=== PATIENT | male | born 1980 | race African-American/Black ===

== ENCOUNTER 2017-04-07 12:27 | Inpatient (IN) | payer MEDICARE, MEDICAID ==
[~2017-04-07 12:27] MED LIST: ALBUTEROL0.83 MG/ML; ALPRAZOLAM0.25 MG PO; ARTIFICIAL TEAR15 M OP; ASCORBIC ACID250 M1 PO; ATENOLOL25 MG PO; BACLOFEN20 MG PO; CYMBALTA60 MG PO; D-20002000 UNIT PO; ELAVIL75 MG PO; FLOVENT HFA12 GM; GABAPENTIN300 MG PO; HYDROCODONE/APA1 CAP; IBUPROFEN600 MG; LIBRIUM25 MG PO; METHENAMINE1 GM MC; MUCINEX600 MG PO; PERIDEX480 ML MM; PROVENTIL17 GM; REGLAN10 MG PO; SINGULAIR10 MG PO; SYMBICORT 16010.2 GM IH
[2017-04-07] MEDS ORDERED: XANAX0.25 M1 PO ×2 (12:48)
[2017-04-07] MEDS ORDERED: CYMBALTA60 M1 PO (12:49)
[2017-04-07] MEDS ORDERED: LINZESS290 MC1 PO (12:49)
[2017-04-07] MEDS ORDERED: THERA-M1 EAC1 PO (12:50)
[2017-04-07] MEDS ORDERED: MELATONIN3 M4 PO (12:52)
[2017-04-07] MEDS ORDERED: AMITRIPTYLINE H25 M1 PO (12:52)
[2017-04-07] MEDS ORDERED: NEURONTIN600 M1 PO (12:52)
[2017-04-07] MEDS ORDERED: SINGULAIR10 M1 PO (12:52)
[2017-04-07] MEDS ORDERED: VITAMIN C500 M3 PO (12:53)
[2017-04-07] MEDS ORDERED: ARTIFICIAL TEAR15 M8 OP (12:53)
[2017-04-07] MEDS ORDERED: GUAIFENESIN200 M3 PO (12:54)
[2017-04-07] MEDS ORDERED: ZYPREXA10 M1 PO (12:54)
[2017-04-07] MEDS ORDERED: PERIDEX118 ML SSP (12:55)
[2017-04-07] MEDS ORDERED: QVAR8.7 G1 INH (12:55)
[2017-04-07] MEDS ORDERED: ACIDOPHILUS-PE1 EAC1 PO (12:55)
[2017-04-07] MEDS ORDERED: SENEXON-S TABL1 EAC1 PO (12:56)
[2017-04-07] MEDS ORDERED: SIMETHICONE80 M3 CH (12:56)
[2017-04-07] MEDS ORDERED: BACLOFEN20 M1 PO (12:56)
[2017-04-07] MEDS ORDERED: HIPREX1 GM PO (12:56)
[2017-04-07] MEDS ORDERED: TIZANIDINE HCL2 M2 PO (12:57)
[2017-04-07] MEDS ORDERED: LYRICA100 MG/CAP PO (12:57)
[2017-04-07] MEDS ORDERED: ZOFRAN ODT4 MG PO (12:57)
[2017-04-07] MEDS ORDERED: CITRATE OF MAG300 M1 PO (13:03)
[2017-04-07] MEDS ORDERED: TYLENOL325 M2 PO (13:04)
[2017-04-07] MEDS ORDERED: COLACE100 M1 PO (13:05)
[2017-04-07] MEDS ORDERED: BISCOLAX10 MG PR ×2 (13:05→13:08)
[2017-04-07] MEDS ORDERED: [UNRECOGNIZED DRUG - CODE] TOP (13:06)
[2017-04-07] MEDS ORDERED: MILK OF MAGNESIA PO (13:06)
[2017-04-07] MEDS ORDERED: IPRAT-ALBUT 0.5-3 ML INH ×2 (13:07)
[2017-04-07] MEDS ORDERED: BISACODYL5 M1 PO (13:08)
[2017-04-07] MEDS ORDERED: ULTRAM50 M1 PO (13:09)
[2017-04-07] MEDS ORDERED: AMBIEN10 M1 PO (13:10)
[2017-04-07 13:43] LABS: BASO % 0.2 % (0-2); EOS % 1.8 % (0-7); EOSINOPHIL ABSOLUTE COUNT 0.2 tho/cmm (0.0-0.7); HCT-HEMATOCRIT 42.3 % (36.0-53.5); IMMATURE GRANULOCYTES ABSOLUTE 0.02 tho/cmm (0-0.03); IMMATURE GRANULOCYTES PERCENT 0.2 % (0-0.3); LYMPH % 23.4 % (20-45); LYMPH ABSOLUTE COUNT 2.2 tho/cmm (0.8-4.5); MCHC MEAN CORPUSCULAR HGB CONC 33.1 % (32.0-36.0); MCV (MEAN CELL VOLUME) 87.8 fl (82.0-96.0); MONO % 6.7 % (0-12); MONOCYTE ABSOLUTE COUNT 0.6 tho/cmm (0.0-1.2); NEUTROPHIL ABSOLUTE COUNT 6.3 tho/cmm (1.6-8.0); NEUTROPHIL-AUTOMATED 6.3 tho/cmm (1.6-8.0); NEUTROPHILS % 67.7 % (40-80); PLATELET COUNT 246 tho/cmm (150-450); RED BLOOD COUNT 4.82 mil/cmm (4.40-5.70); RED CELL DISTRIBUTION WIDTH 13.9 % (12.4-16.4); WHITE BLOOD COUNT 9.3 tho/cmm (4.0-10.0)
[2017-04-07] MEDS ORDERED: VITAMIN D-32000 UNI4 PO (13:49)
[2017-04-07 13:57] LABS: ALB/GLOB RATIO 0.8 (0.8-2.0); ALBUMIN 3.5 g/dl (3.5-5.0); ALKALINE PHOSPHATASE 69 U/L (33-138); ALT/SGPT 27 U/L (12-78); ANION GAP 14 mmol/L (0-20); AST/SGOT 17 U/L (10-40); BILIRUBIN,TOTAL 0.3 mg/dl (0.0-1.5); BLOOD UREA NITROGEN 4 mg/dl (6-24); CALCIUM 9.1 mg/dl (8.5-10.5); CARBON DIOXIDE-VENOUS 28 mmol/L (22-32); CHLORIDE 105 mmol/l (96-110); GLUCOSE 96 mg/dL (70-110); LIPASE 120 U/L (73-393); POTASSIUM 3.5 mmol/L (3.7-5.1); SODIUM 143 mmol/L (135-145); eGFR VALUE FOR BLACK >90 mL/Min
[2017-04-08 05:09] LABS: BASO % 0.4 % (0-2); EOS % 3.8 % (0-7); EOSINOPHIL ABSOLUTE COUNT 0.3 tho/cmm (0.0-0.7); HCT-HEMATOCRIT 38.1 % (36.0-53.5); HGB-HEMOGLOBIN 12.3 gm/dl (13.5-17.0); IMMATURE GRANULOCYTES ABSOLUTE 0.01 tho/cmm (0-0.03); IMMATURE GRANULOCYTES PERCENT 0.1 % (0-0.3); LYMPH % 32.3 % (20-45); LYMPH ABSOLUTE COUNT 2.5 tho/cmm (0.8-4.5); MCH (MEAN CORPUSCULAR HGB) 28.5 pg (28.0-32.0); MCHC MEAN CORPUSCULAR HGB CONC 32.3 % (32.0-36.0); MCV (MEAN CELL VOLUME) 88.4 fl (82.0-96.0); MEAN PLATELET VOLUME 10.2 cmc (9.4-12.4); MONO % 7.5 % (0-12); MONOCYTE ABSOLUTE COUNT 0.6 tho/cmm (0.0-1.2); NEUTROPHIL ABSOLUTE COUNT 4.3 tho/cmm (1.6-8.0); NEUTROPHIL-AUTOMATED 4.3 tho/cmm (1.6-8.0); NEUTROPHILS % 55.9 % (40-80); PLATELET COUNT 214 tho/cmm (150-450); RED BLOOD COUNT 4.31 mil/cmm (4.40-5.70); WHITE BLOOD COUNT 7.6 tho/cmm (4.0-10.0)
[2017-04-08 05:18] LABS: ANION GAP 14 mmol/L (0-20); BLOOD UREA NITROGEN 7 mg/dl (6-24); CALCIUM 8.1 mg/dl (8.5-10.5); CARBON DIOXIDE-VENOUS 27 mmol/L (22-32); CHLORIDE 109 mmol/l (96-110); CREATININE 0.62 mg/dl (0.60-1.30); GLUCOSE 78 mg/dL (70-110); MAGNESIUM 2.4 mg/dl (1.8-2.6); POTASSIUM 3.4 mmol/L (3.7-5.1); SODIUM 147 mmol/L (135-145); eGFR VALUE FOR BLACK >90 mL/Min
--- NOTE | 2017-04-08 21:50 | NUR ---
VIRTUAL CARE NOTE: ASSESSMENT DEFERRED. PT. SLEEPING.
[2017-04-09 05:33] LABS: HGB-HEMOGLOBIN 13.6 gm/dl (13.5-17.0); PLATELET COUNT 217 tho/cmm (150-450)
[2017-04-09 05:49] LABS: ANION GAP 20 mmol/L (0-20); BLOOD UREA NITROGEN 5 mg/dl (6-24); CALCIUM 8.7 mg/dl (8.5-10.5); CARBON DIOXIDE-VENOUS 22 mmol/L (22-32); CHLORIDE 110 mmol/l (96-110); POTASSIUM 3.7 mmol/L (3.7-5.1); SODIUM 148 mmol/L (135-145); eGFR VALUE FOR BLACK >90 mL/Min
[2017-04-09 05:56] LABS: GLUCOSE 66 mg/dL (70-110)
[2017-04-10 05:53] LABS: ANION GAP 18 mmol/L (0-20); BLOOD UREA NITROGEN 6 mg/dl (6-24); CALCIUM 8.9 mg/dl (8.5-10.5); CARBON DIOXIDE-VENOUS 18 mmol/L (22-32); CHLORIDE 118 mmol/l (96-110); CREATININE 0.66 mg/dl (0.60-1.30); MAGNESIUM 2.5 mg/dl (1.8-2.6); POTASSIUM 4.1 mmol/L (3.7-5.1); SODIUM 150 mmol/L (135-145); eGFR VALUE FOR BLACK >90 mL/Min
[2017-04-10 05:56] LABS: GLUCOSE 66 mg/dL (70-110)
[2017-04-11 08:56] LABS: BASO % 0.2 % (0-2); EOS % 2.2 % (0-7); EOSINOPHIL ABSOLUTE COUNT 0.2 tho/cmm (0.0-0.7); HCT-HEMATOCRIT 39.6 % (36.0-53.5); IMMATURE GRANULOCYTES ABSOLUTE 0.02 tho/cmm (0-0.03); IMMATURE GRANULOCYTES PERCENT 0.2 % (0-0.3); LYMPH % 15.9 % (20-45); LYMPH ABSOLUTE COUNT 1.7 tho/cmm (0.8-4.5); MCH (MEAN CORPUSCULAR HGB) 28.8 pg (28.0-32.0); MCHC MEAN CORPUSCULAR HGB CONC 32.8 % (32.0-36.0); MCV (MEAN CELL VOLUME) 87.6 fl (82.0-96.0); MONO % 6.9 % (0-12); MONOCYTE ABSOLUTE COUNT 0.7 tho/cmm (0.0-1.2); NEUTROPHIL ABSOLUTE COUNT 7.7 tho/cmm (1.6-8.0); NEUTROPHIL-AUTOMATED 7.7 tho/cmm (1.6-8.0); NEUTROPHILS % 74.6 % (40-80); PLATELET COUNT 211 tho/cmm (150-450); RED BLOOD COUNT 4.52 mil/cmm (4.40-5.70); WHITE BLOOD COUNT 10.4 tho/cmm (4.0-10.0)
[2017-04-11 09:05] LABS: ANION GAP 16 mmol/L (0-20); BLOOD UREA NITROGEN 5 mg/dl (6-24); CALCIUM 8.8 mg/dl (8.5-10.5); CARBON DIOXIDE-VENOUS 19 mmol/L (22-32); CHLORIDE 115 mmol/l (96-110); CREATININE 0.55 mg/dl (0.60-1.30); GLUCOSE 98 mg/dL (70-110); MAGNESIUM 2.2 mg/dl (1.8-2.6); POTASSIUM 3.3 mmol/L (3.7-5.1); SODIUM 147 mmol/L (135-145); eGFR VALUE FOR BLACK >90 mL/Min
--- NOTE | 2017-04-11 19:24 | NUR ---
VIRTUAL CARE NOTE: ASSESSMENT DEFERRED. PT. SLEEPING
[2017-04-12 13:08] LABS: BASO % 0.5 % (0-2); EOS % 3.2 % (0-7); EOSINOPHIL ABSOLUTE COUNT 0.3 tho/cmm (0.0-0.7); HCT-HEMATOCRIT 38.3 % (36.0-53.5); HGB-HEMOGLOBIN 12.6 gm/dl (13.5-17.0); IMMATURE GRANULOCYTES ABSOLUTE 0.02 tho/cmm (0-0.03); IMMATURE GRANULOCYTES PERCENT 0.2 % (0-0.3); LYMPH % 17.9 % (20-45); LYMPH ABSOLUTE COUNT 1.6 tho/cmm (0.8-4.5); MCH (MEAN CORPUSCULAR HGB) 28.6 pg (28.0-32.0); MCHC MEAN CORPUSCULAR HGB CONC 32.9 % (32.0-36.0); MCV (MEAN CELL VOLUME) 86.8 fl (82.0-96.0); MEAN PLATELET VOLUME 10.3 cmc (9.4-12.4); MONO % 8.5 % (0-12); MONOCYTE ABSOLUTE COUNT 0.8 tho/cmm (0.0-1.2); NEUTROPHIL ABSOLUTE COUNT 6.1 tho/cmm (1.6-8.0); NEUTROPHIL-AUTOMATED 6.1 tho/cmm (1.6-8.0); NEUTROPHILS % 69.7 % (40-80); PLATELET COUNT 213 tho/cmm (150-450); RED BLOOD COUNT 4.41 mil/cmm (4.40-5.70); RED CELL DISTRIBUTION WIDTH 14.1 % (12.4-16.4); WHITE BLOOD COUNT 8.8 tho/cmm (4.0-10.0)
[2017-04-12 13:25] LABS: ANION GAP 16 mmol/L (0-20); BLOOD UREA NITROGEN 6 mg/dl (6-24); CALCIUM 8.8 mg/dl (8.5-10.5); CARBON DIOXIDE-VENOUS 24 mmol/L (22-32); CHLORIDE 112 mmol/l (96-110); GLUCOSE 85 mg/dL (70-110); POTASSIUM 3.3 mmol/L (3.7-5.1); SODIUM 149 mmol/L (135-145); eGFR VALUE FOR BLACK >90 mL/Min
[2017-04-13 06:54] LABS: BASO % 1.5 % (0-2); BASO ABSOLUTE COUNT 0.1 tho/cmm (0.0-0.2); EOS % 4.4 % (0-7); EOSINOPHIL ABSOLUTE COUNT 0.4 tho/cmm (0.0-0.7); HCT-HEMATOCRIT 37.1 % (36.0-53.5); HGB-HEMOGLOBIN 12.3 gm/dl (13.5-17.0); IMMATURE GRANULOCYTES ABSOLUTE 0.28 tho/cmm (0-0.03); IMMATURE GRANULOCYTES PERCENT 3.2 % (0-0.3); LYMPH ABSOLUTE COUNT 2.1 tho/cmm (0.8-4.5); MCH (MEAN CORPUSCULAR HGB) 28.8 pg (28.0-32.0); MCHC MEAN CORPUSCULAR HGB CONC 33.2 % (32.0-36.0); MCV (MEAN CELL VOLUME) 86.9 fl (82.0-96.0); MEAN PLATELET VOLUME 10.4 cmc (9.4-12.4); MONO % 10.4 % (0-12); MONOCYTE ABSOLUTE COUNT 0.9 tho/cmm (0.0-1.2); NEUTROPHILS % 56.5 % (40-80); PLATELET COUNT 199 tho/cmm (150-450); RED BLOOD COUNT 4.27 mil/cmm (4.40-5.70); RED CELL DISTRIBUTION WIDTH 14.3 % (12.4-16.4); WHITE BLOOD COUNT 8.9 tho/cmm (4.0-10.0)
[2017-04-13 07:27] LABS: BLOOD UREA NITROGEN 6 mg/dl (6-24); CALCIUM 8.7 mg/dl (8.5-10.5); CARBON DIOXIDE-VENOUS 26 mmol/L (22-32); CHLORIDE 108 mmol/l (96-110); CREATININE 0.52 mg/dl (0.60-1.30); GLUCOSE 110 mg/dL (70-110); PHOSPHOROUS 2.8 mg/dl (2.5-4.9); SODIUM 142 mmol/L (135-145); eGFR VALUE FOR BLACK >90 mL/Min
[2017-04-13 07:47] LABS: ANION GAP 11 mmol/L (0-20); MAGNESIUM 2.4 mg/dl (1.8-2.6); POTASSIUM 3.4 mmol/L (3.7-5.1)
[2017-04-14 06:21] LABS: BASO % 0.5 % (0-2); EOS % 3.9 % (0-7); EOSINOPHIL ABSOLUTE COUNT 0.3 tho/cmm (0.0-0.7); HCT-HEMATOCRIT 37.2 % (36.0-53.5); IMMATURE GRANULOCYTES ABSOLUTE 0.02 tho/cmm (0-0.03); IMMATURE GRANULOCYTES PERCENT 0.2 % (0-0.3); LYMPH % 20.5 % (20-45); LYMPH ABSOLUTE COUNT 1.8 tho/cmm (0.8-4.5); MCH (MEAN CORPUSCULAR HGB) 28.6 pg (28.0-32.0); MCHC MEAN CORPUSCULAR HGB CONC 32.3 % (32.0-36.0); MCV (MEAN CELL VOLUME) 88.8 fl (82.0-96.0); MEAN PLATELET VOLUME 10.6 cmc (9.4-12.4); MONO % 8.4 % (0-12); MONOCYTE ABSOLUTE COUNT 0.7 tho/cmm (0.0-1.2); NEUTROPHIL ABSOLUTE COUNT 5.8 tho/cmm (1.6-8.0); NEUTROPHIL-AUTOMATED 5.8 tho/cmm (1.6-8.0); NEUTROPHILS % 66.5 % (40-80); PLATELET COUNT 207 tho/cmm (150-450); RED BLOOD COUNT 4.19 mil/cmm (4.40-5.70); RED CELL DISTRIBUTION WIDTH 14.2 % (12.4-16.4); WHITE BLOOD COUNT 8.8 tho/cmm (4.0-10.0)
[2017-04-14 06:39] LABS: ANION GAP 13 mmol/L (0-20); BLOOD UREA NITROGEN 7 mg/dl (6-24); CALCIUM 9.2 mg/dl (8.5-10.5); CARBON DIOXIDE-VENOUS 30 mmol/L (22-32); CHLORIDE 109 mmol/l (96-110); CREATININE 0.58 mg/dl (0.60-1.30); GLUCOSE 118 mg/dL (70-110); MAGNESIUM 2.5 mg/dl (1.8-2.6); POTASSIUM 3.7 mmol/L (3.7-5.1); SODIUM 148 mmol/L (135-145); eGFR VALUE FOR BLACK >90 mL/Min
[2017-04-14 06:51] LABS: PROCALCITONIN 0.07 ng/ml (0.05-0.09)
--- NOTE | 2017-04-14 21:54 | NUR ---
VN ROUNDING-PATIENT SITTING UP IN CHAIR AND NURSE AT BEDSIDE. PATIENT HAVING SOME PAIN AND NURSE WILL BE GETTING HIM SOME DILAUDID WITH HIS MEDS. THEY ARE GETTING READY TO PUT HIM BACK TO BED. NG IS STILL SUCTIONING OUT AND NURSE SAID ABOUT 450CC TODAY. PATIENT HAS NO QUESTIONS OR CONCERNS AT THIS TIME.
[2017-04-15 06:09] LABS: BASO % 0.4 % (0-2); EOS % 4.8 % (0-7); EOSINOPHIL ABSOLUTE COUNT 0.5 tho/cmm (0.0-0.7); HCT-HEMATOCRIT 39.2 % (36.0-53.5); HGB-HEMOGLOBIN 12.5 gm/dl (13.5-17.0); IMMATURE GRANULOCYTES ABSOLUTE 0.01 tho/cmm (0-0.03); IMMATURE GRANULOCYTES PERCENT 0.1 % (0-0.3); LYMPH % 24.7 % (20-45); LYMPH ABSOLUTE COUNT 2.5 tho/cmm (0.8-4.5); MCH (MEAN CORPUSCULAR HGB) 28.4 pg (28.0-32.0); MCHC MEAN CORPUSCULAR HGB CONC 31.9 % (32.0-36.0); MCV (MEAN CELL VOLUME) 89.1 fl (82.0-96.0); MEAN PLATELET VOLUME 10.5 cmc (9.4-12.4); MONO % 7.9 % (0-12); MONOCYTE ABSOLUTE COUNT 0.8 tho/cmm (0.0-1.2); NEUTROPHIL ABSOLUTE COUNT 6.3 tho/cmm (1.6-8.0); NEUTROPHIL-AUTOMATED 6.3 tho/cmm (1.6-8.0); NEUTROPHILS % 62.1 % (40-80); PLATELET COUNT 235 tho/cmm (150-450); RED CELL DISTRIBUTION WIDTH 13.9 % (12.4-16.4); WHITE BLOOD COUNT 10.1 tho/cmm (4.0-10.0)
[2017-04-15 06:20] LABS: ANION GAP 11 mmol/L (0-20); BLOOD UREA NITROGEN 6 mg/dl (6-24); CALCIUM 8.7 mg/dl (8.5-10.5); CARBON DIOXIDE-VENOUS 32 mmol/L (22-32); CHLORIDE 105 mmol/l (96-110); CREATININE 0.63 mg/dl (0.60-1.30); GLUCOSE 111 mg/dL (70-110); POTASSIUM 3.3 mmol/L (3.7-5.1); SODIUM 145 mmol/L (135-145); eGFR VALUE FOR BLACK >90 mL/Min
--- NOTE | 2017-04-16 14:05 | NUR ---
VIRTUAL CARE NOTE: PT SITTING ON CHAIR, STATES DOING GOOD, DENIES PAIN OR NAUSEA ISSUES SINCE NG TUBE CAME OUT YESTERDAY. AWAITING FOR SURGEON ROUND TODAY TO DECIDE ON DIET. PLAN OF CARE DISCUSSED WITH PT. DENIES ANY NEEDS OR QUESTIONS AT THIS TIME.
--- NOTE | 2017-04-16 22:30 | NUR ---
VIRTUAL CARE NOTE: ASSESSMENT DEFERRED. PT. SLEEPING.
[2017-04-17 05:09] LABS: BASO % 0.3 % (0-2); EOSINOPHIL ABSOLUTE COUNT 0.4 tho/cmm (0.0-0.7); HCT-HEMATOCRIT 36.9 % (36.0-53.5); HGB-HEMOGLOBIN 12.2 gm/dl (13.5-17.0); IMMATURE GRANULOCYTES ABSOLUTE 0.02 tho/cmm (0-0.03); IMMATURE GRANULOCYTES PERCENT 0.2 % (0-0.3); LYMPH % 28.5 % (20-45); LYMPH ABSOLUTE COUNT 2.5 tho/cmm (0.8-4.5); MCH (MEAN CORPUSCULAR HGB) 28.6 pg (28.0-32.0); MCHC MEAN CORPUSCULAR HGB CONC 33.1 % (32.0-36.0); MCV (MEAN CELL VOLUME) 86.4 fl (82.0-96.0); MEAN PLATELET VOLUME 10.6 cmc (9.4-12.4); MONO % 9.8 % (0-12); MONOCYTE ABSOLUTE COUNT 0.9 tho/cmm (0.0-1.2); NEUTROPHIL ABSOLUTE COUNT 4.9 tho/cmm (1.6-8.0); NEUTROPHIL-AUTOMATED 4.9 tho/cmm (1.6-8.0); NEUTROPHILS % 56.2 % (40-80); PLATELET COUNT 246 tho/cmm (150-450); RED BLOOD COUNT 4.27 mil/cmm (4.40-5.70); RED CELL DISTRIBUTION WIDTH 13.4 % (12.4-16.4); WHITE BLOOD COUNT 8.8 tho/cmm (4.0-10.0)
--- NOTE | 2017-04-17 21:03 | NUR ---
VIRTUAL CARE NOTE: ASSESSMENT DEFERRED. PT. SLEEPING.
== END 2017-04-18 11:12 | DRG 388 ==
LOC: EDMED 12:27 → EMR2 17:54 → 5WD 18:52
PROVIDERS: Emergency Medicine; Family Medicine; Internal Medicine; Internal Medicine Cardiovascular Disease; Nurse Practitioner Acute Care; Registered Nurse; ADMIT Hospitalist
PROC: 05HF33Z Insertion of Infusion Device into Left Cephalic Vein, Percutaneous Approach (ICD-10-PCS; principal; 2017-04-15)
DX: K56.60 Unspecified intestinal obstruction (principal); G82.50 Quadriplegia, unspecified; N31.9 Neuromuscular dysfunction of bladder, unspecified; E87.0 Hyperosmolality and hypernatremia; F32.9 Major depressive disorder, single episode, unspecified; F41.9 Anxiety disorder, unspecified; E87.6 Hypokalemia; E16.2 Hypoglycemia, unspecified; G47.00 Insomnia, unspecified; R82.71 Bacteriuria; R00.0 Tachycardia, unspecified; Z86.718 Personal history of other venous thrombosis and embolism; Z87.891 Personal history of nicotine dependence; Z96.0 Presence of urogenital implants; Z23 Encounter for immunization
CPT/HCPCS: C1751; G0009; J1170; J1200; J1364; J1650; J2060; J2765; J3475; J3480; J7030; Q9967

== ENCOUNTER 2017-04-19 13:11 | Inpatient (IN) | payer MEDICARE, MEDICAID ==
[~2017-04-19 13:11] MED LIST changes: +ACIDOPHILUS-PE1 EAC1 PO; +AMBIEN10 M1 PO; +AMITRIPTYLINE H25 M1 PO; +ARTIFICIAL TEAR15 M8 OP; +BACLOFEN20 M1 PO; +BISACODYL5 M1 PO; +BISCOLAX10 MG PR; +CITRATE OF MAG300 M1 PO; +COLACE100 M1 PO; +CYMBALTA60 M1 PO; +GUAIFENESIN200 M3 PO; +HIPREX1 GM PO; +IPRAT-ALBUT 0.5-3 ML INH; +LINZESS290 MC1 PO; +LYRICA100 MG/CAP PO; +MELATONIN3 M4 PO; +MILK OF MAGNESIA PO; +NEURONTIN600 M1 PO; +PERIDEX118 ML SSP; +QVAR8.7 G1 INH; +SENEXON-S TABL1 EAC1 PO; +SIMETHICONE80 M3 CH; +SINGULAIR10 M1 PO; +THERA-M1 EAC1 PO; +TIZANIDINE HCL2 M2 PO; +TYLENOL325 M2 PO; +ULTRAM50 M1 PO; +VITAMIN C500 M3 PO; +VITAMIN D-32000 UNI4 PO; +XANAX0.25 M1 PO; +ZOFRAN ODT4 MG PO; +ZYPREXA10 M1 PO; +[UNRECOGNIZED DRUG - CODE] TOP
[2017-04-19 14:07] LABS: BASO % 0.2 % (0-2); EOS % 6.4 % (0-7); EOSINOPHIL ABSOLUTE COUNT 0.4 tho/cmm (0.0-0.7); HGB-HEMOGLOBIN 10.8 gm/dl (13.5-17.0); IMMATURE GRANULOCYTES ABSOLUTE 0.01 tho/cmm (0-0.03); IMMATURE GRANULOCYTES PERCENT 0.2 % (0-0.3); LYMPH % 30.3 % (20-45); LYMPH ABSOLUTE COUNT 1.7 tho/cmm (0.8-4.5); MCH (MEAN CORPUSCULAR HGB) 28.3 pg (28.0-32.0); MCHC MEAN CORPUSCULAR HGB CONC 32.7 % (32.0-36.0); MCV (MEAN CELL VOLUME) 86.6 fl (82.0-96.0); MEAN PLATELET VOLUME 10.4 cmc (9.4-12.4); MONO % 11.5 % (0-12); MONOCYTE ABSOLUTE COUNT 0.6 tho/cmm (0.0-1.2); NEUTROPHIL ABSOLUTE COUNT 2.8 tho/cmm (1.6-8.0); NEUTROPHIL-AUTOMATED 2.8 tho/cmm (1.6-8.0); NEUTROPHILS % 51.4 % (40-80); PLATELET COUNT 238 tho/cmm (150-450); RED BLOOD COUNT 3.81 mil/cmm (4.40-5.70); RED CELL DISTRIBUTION WIDTH 13.6 % (12.4-16.4); WHITE BLOOD COUNT 5.5 tho/cmm (4.0-10.0)
[2017-04-19 14:41] LABS: PROTHROMBIN TIME 12.1 SECONDS (9.0-13.6)
[2017-04-19 14:41] LABS: ANION GAP 14 mmol/L (0-20); BLOOD UREA NITROGEN 4 mg/dl (6-24); CALCIUM 8.8 mg/dl (8.5-10.5); CARBON DIOXIDE-VENOUS 27 mmol/L (22-32); CHLORIDE 105 mmol/l (96-110); CREATININE 0.45 mg/dl (0.60-1.30); GLUCOSE 94 mg/dL (70-110); SODIUM 143 mmol/L (135-145); eGFR VALUE FOR BLACK >90 mL/Min
[2017-04-19 14:49] LABS: ALBUMIN 2.7 g/dl (3.5-5.0)
[2017-04-19 14:57] LABS: URINE BILIRUBIN NEGATIVE (NEG); URINE BLOOD LARGE (NEG); URINE GLUCOSE (UA) NEGATIVE (NEG); URINE KETONE NEGATIVE (NEG); URINE LEUKOCYTE ESTERASE POSITIVE (NEG); URINE NITRITE POSITIVE (NEG); URINE PROTEIN MODERATE (NEG)
[2017-04-19 14:59] LABS: URINE APPEARANCE HAZY; URINE COLOR YELLOW
[2017-04-19 15:02] LABS: ALB/GLOB RATIO 0.7 (0.8-2.0); ALKALINE PHOSPHATASE 64 U/L (33-138); ALT/SGPT 75 U/L (12-78); AST/SGOT 72 U/L (10-40); BILIRUBIN,TOTAL 0.2 mg/dl (0.0-1.5)
[2017-04-19 15:19] LABS: URINE BACTERIA 3+
[2017-04-19 15:20] LABS: URINE AMORPHOUS 2+; URINE EPITHELIAL CELLS 0-2 /[HPF] (0-10)
[2017-04-19 15:21] LABS: URINE RBC 15-20 /[HPF] (0-5); URINE WBC 25-30 /[HPF] (0-5)
[2017-04-19 15:50] LABS: C-REACTIVE PROTEIN 2.1 mg/dl (0-0.9)
[2017-04-19 15:59] LABS: PROCALCITONIN 0.09 ng/ml (0.05-0.09)
[2017-04-20 06:01] LABS: BASO % 0.5 % (0-2); EOS % 4.2 % (0-7); EOSINOPHIL ABSOLUTE COUNT 0.3 tho/cmm (0.0-0.7); HCT-HEMATOCRIT 33.6 % (36.0-53.5); HGB-HEMOGLOBIN 10.7 gm/dl (13.5-17.0); IMMATURE GRANULOCYTES ABSOLUTE 0.03 tho/cmm (0-0.03); IMMATURE GRANULOCYTES PERCENT 0.4 % (0-0.3); LYMPH % 25.6 % (20-45); LYMPH ABSOLUTE COUNT 1.9 tho/cmm (0.8-4.5); MCH (MEAN CORPUSCULAR HGB) 27.9 pg (28.0-32.0); MCHC MEAN CORPUSCULAR HGB CONC 31.8 % (32.0-36.0); MCV (MEAN CELL VOLUME) 87.5 fl (82.0-96.0); MEAN PLATELET VOLUME 10.2 cmc (9.4-12.4); MONO % 9.1 % (0-12); MONOCYTE ABSOLUTE COUNT 0.7 tho/cmm (0.0-1.2); NEUTROPHIL ABSOLUTE COUNT 4.6 tho/cmm (1.6-8.0); NEUTROPHIL-AUTOMATED 4.6 tho/cmm (1.6-8.0); NEUTROPHILS % 60.2 % (40-80); PLATELET COUNT 261 tho/cmm (150-450); RED BLOOD COUNT 3.84 mil/cmm (4.40-5.70); RED CELL DISTRIBUTION WIDTH 13.8 % (12.4-16.4); WHITE BLOOD COUNT 7.6 tho/cmm (4.0-10.0)
[2017-04-20 06:12] LABS: ANION GAP 11 mmol/L (0-20); BLOOD UREA NITROGEN 3 mg/dl (6-24); CALCIUM 8.3 mg/dl (8.5-10.5); CARBON DIOXIDE-VENOUS 28 mmol/L (22-32); CHLORIDE 105 mmol/l (96-110); CREATININE 0.61 mg/dl (0.60-1.30); GLUCOSE 99 mg/dL (70-110); SODIUM 141 mmol/L (135-145); eGFR VALUE FOR BLACK >90 mL/Min
[2017-04-21 11:27] LABS: ANION GAP 13 mmol/L (0-20); BLOOD UREA NITROGEN 4 mg/dl (6-24); CALCIUM 8.8 mg/dl (8.5-10.5); CARBON DIOXIDE-VENOUS 28 mmol/L (22-32); CHLORIDE 109 mmol/l (96-110); GLUCOSE 127 mg/dL (70-110); SODIUM 147 mmol/L (135-145); eGFR VALUE FOR BLACK >90 mL/Min
[2017-04-21 12:30] LABS: BASO % 0.5 % (0-2); EOS % 2.8 % (0-7); EOSINOPHIL ABSOLUTE COUNT 0.2 tho/cmm (0.0-0.7); HCT-HEMATOCRIT 33.7 % (36.0-53.5); HGB-HEMOGLOBIN 10.9 gm/dl (13.5-17.0); IMMATURE GRANULOCYTES ABSOLUTE 0.03 tho/cmm (0-0.03); IMMATURE GRANULOCYTES PERCENT 0.4 % (0-0.3); LYMPH % 26.6 % (20-45); LYMPH ABSOLUTE COUNT 2.1 tho/cmm (0.8-4.5); MCH (MEAN CORPUSCULAR HGB) 28.5 pg (28.0-32.0); MCHC MEAN CORPUSCULAR HGB CONC 32.3 % (32.0-36.0); MCV (MEAN CELL VOLUME) 88.2 fl (82.0-96.0); MEAN PLATELET VOLUME 10.3 cmc (9.4-12.4); MONO % 12.8 % (0-12); NEUTROPHIL ABSOLUTE COUNT 4.5 tho/cmm (1.6-8.0); NEUTROPHIL-AUTOMATED 4.5 tho/cmm (1.6-8.0); NEUTROPHILS % 56.9 % (40-80); PLATELET COUNT 274 tho/cmm (150-450); RED BLOOD COUNT 3.82 mil/cmm (4.40-5.70); RED CELL DISTRIBUTION WIDTH 14.3 % (12.4-16.4); WHITE BLOOD COUNT 7.9 tho/cmm (4.0-10.0)
[2017-04-22 05:22] LABS: HGB-HEMOGLOBIN 10.9 gm/dl (13.5-17.0); PLATELET COUNT 278 tho/cmm (150-450)
[2017-04-22 05:35] LABS: ANION GAP 11 mmol/L (0-20); BLOOD UREA NITROGEN 3 mg/dl (6-24); CALCIUM 8.7 mg/dl (8.5-10.5); CARBON DIOXIDE-VENOUS 27 mmol/L (22-32); CHLORIDE 111 mmol/l (96-110); CREATININE 0.75 mg/dl (0.60-1.30); GLUCOSE 86 mg/dL (70-110); SODIUM 146 mmol/L (135-145); eGFR VALUE FOR BLACK >90 mL/Min
[2017-04-22 05:50] LABS: POTASSIUM 3.4 mmol/L (3.7-5.1)
== END 2017-04-22 16:24 | DRG 871 ==
LOC: EDMED 13:11 → EMR2 15:48 → 5WE 17:25
PROVIDERS: Emergency Medicine; Family Medicine; ADMIT Hospitalist
DX: A41.9 Sepsis, unspecified organism (principal); G82.50 Quadriplegia, unspecified; N39.0 Urinary tract infection, site not specified; J45.909 Unspecified asthma, uncomplicated; F41.9 Anxiety disorder, unspecified; F32.9 Major depressive disorder, single episode, unspecified; E87.6 Hypokalemia; B96.20 Unspecified Escherichia coli [E. coli] as the cause of diseases classified elsewhere; Z79.899 Other long term (current) drug therapy
CPT/HCPCS: J1650; J2270; J2543; J3370; J7030